=== PATIENT | male | born 1955 | race Caucasian/White ===

== ENCOUNTER 2017-04-11 15:08 | Emergency (ER) | payer MEDICARE ==
--- NOTE | 2017-04-11 15:13 | ED.PDOC ---
History of Present Illness - General Chief Complaint: Neuro Symptoms/Deficits Stated Complaint: L arm numbness & weakness Time Seen by Provider: 04/11/17 15:10 Source: patient, RN notes reviewed, Vital Signs reviewed, family - Exam Limitations: no limitations - History of Present Illness Initial Comments: Patient reports he was washing his car and his left arm went numb and weak. He could not open the car door. Symptoms are better now. reports he seems weaker on the left side and his speech is more slurred than normal. No chest pain or FUCHS. Timing/Duration: 1/2 hour Severity: mild Improving Factors: nothing Worsening Factors: nothing Associated Symptoms: slurred speech, weakness - L arm, other - numbness L arm Allergies/Adverse Reactions: Allergies NO KNOWN ALLERGY Allergy (Verified 04/11/17 16:17) Home Medications: Ambulatory Orders Clopidogrel Bisulfate [Plavix] 75 mg PO DAILY 04/11/17 Cyanocobalamin [Vitamin B12] 500 mcg PO DAILY 04/11/17 Levothyroxine Sodium 125 mcg PO DAILY 04/11/17 PARoxetine HCL [Paxil] 20 mg PO DAILY 04/11/17 Spironolactone 50 mg PO DAILY 04/11/17 Review of Systems - Review of Systems Constitutional: States: no symptoms reported EENTM: States: blurred vision Respiratory: States: no symptoms reported Cardiology: States: no symptoms reported. Denies: chest pain Gastrointestinal/Abdominal: States: no symptoms reported Musculoskeletal: States: no symptoms reported Skin: States: no symptoms reported Neurological: States: see HPI, numbness - L arm, weakness - L arm All other Systems: No Change from Baseline Family Medical History - Family History Father Family History: Unknown Living Status: Physical Exam - Physical Exam General Appearance: Alert, Comfortable, No apparent distress, Well Developed, Well Groomed, Well Hydrated, Well Nourished Eye Exam: bilateral normal ENT Exam: hearing grossly normal Neck: non-tender, supple, normal inspection Respiratory: lungs clear, normal breath sounds, no respiratory distress, no accessory muscle use Cardiovascular/Chest: regular rate, rhythm, no gallop, no murmur Gastrointestinal/Abdominal: normal bowel sounds, non tender, soft, no organomegaly Extremities Exam: non-tender, normal range of motion, no evidence of injury 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 Most likely TIA. Will have follow up with PCP this week. - Results/Orders Results/Orders: Laboratory Tests 04/11/17 04/11/17 15:45 15:45 WBC 4.9 RBC 4.56 L Hgb 13.2 L Hct 39.8 L MCV 87.4 MCH 28.9 MCHC 33.2 RDW 14.6 H Plt Count 155 MPV 10.0 Absolute Neuts (auto) 3.90 Absolute Lymphs (auto) 0.50 L Absolute Monos (auto) 0.40 Absolute Eos (auto) 0.10 Absolute Basos (auto) 0.00 Neutrophils % 79.0 H Lymphocytes % 10.0 L Monocytes % 9.1 H Eosinophils % 1.1 Basophils % 0.8 Sodium 132 L Potassium 3.9 Chloride 101 Carbon Dioxide 22 Anion Gap 12.9 BUN 24 H Creatinine 1.00 BUN/Creatinine Ratio 24.0 H Random Glucose 100 Serum Osmolality 268.6 L Calcium 8.9 Total Bilirubin 0.9 AST 34 ALT 23 Alkaline Phosphatase 52 Creatine Kinase 196 H CK-MB (CK-2) 3.2 CK-MB (CK-2) % Not Reportable Troponin I 0.02 Serum Total Protein 7.7 Albumin 4.0 Globulin 3.7 H Albumin/Globulin Ratio 1.1 - EKG/XRAY/CT CT Ordered: Yes - Head: old CVA R, no acute changes Stroke Information - Onset of Symptoms Symptoms of Stroke: Weakness of limb Stroke Onset of Symptoms Date: 04/11/17 Stroke Onset of Symptoms Time: 14:30 - Contraindications Antithrombotic Contraindication: Treatment not indicated t-PA Contraindication: Drug Tx Not Indicated Departure - Departure Clinical Impression: Transient ischaemic attack (TIA), and cerebral infarction without residual deficits Time of Disposition: 16:23 Disposition: Discharge to Home or Self Care Condition: Good Departure Forms: ED Discharge - Pt. Copy, Patient Portal Self Enrollment Instructions: DI for Transient Ischemic Attack Diet: resume usual diet Activity: increase activity as tolerated Referrals: Jay Mckenzie MD [Primary Care Provider] - 1-2 Days Home Medications: Ambulatory Orders Clopidogrel Bisulfate [Plavix] 75 mg PO DAILY 04/11/17 Cyanocobalamin [Vitamin B12] 500 mcg PO DAILY 04/11/17 Levothyroxine Sodium 125 mcg PO DAILY 04/11/17 PARoxetine HCL [Paxil] 20 mg PO DAILY 04/11/17 Spironolactone 50 mg PO DAILY 04/11/17
--- NOTE | 2017-04-11 16:01 | CT ---
EXAM DESCRIPTION: Head. CT head without contrast. CLINICAL HISTORY: L arm numbness/weakness COMPARISON: 03/16/2008 TECHNIQUE: Multiple axial images of the head without contrast. Multiplanar reformatted images. This exam was performed according to our departmental dose-optimization program, which includes automated exposure control, adjustment of the mA and/or kV according to patient size and/or use of iterative reconstruction technique. FINDINGS: There is no CT evidence of intracranial hemorrhage, mass effect, or large territory acute infarction. There is a chronic right middle cerebral artery territory infarct involving the frontoparietal lobes with encephalomalacia. There is moderate volume loss which is advanced for the patient's age. Mild patchy supratentorial white matter hypodensities. The brain parenchyma and ventricles are normal. There are no abnormal extra-axial fluid collections. Calcific plaque in the visualized arteries. There is no acute calvarial defect. The visualized paranasal sinuses and the mastoids are clear. IMPRESSION: 1. No CT evidence of an acute intracranial abnormality. If there is concern for an acute or subacute infarct, consider follow-up MRI. 2. Chronic right frontoparietal infarct with encephalomalacia. 3. Moderate volume loss. 4. Mild chronic microangiopathy. Electronically signed by: Azael Giraldo MD 04/11/2017 3:59 PM CDT
[2017-04-11 17:10] VITALS: BP 124/87; TEMP 97.2; O2SAT 97
== END 2017-04-11 16:55 | disposition home or self-care (01) ==
LOC: ER 15:08
DX: G45.9 Transient cerebral ischemic attack, unspecified (principal); Z79.02 Long term (current) use of antithrombotics/antiplatelets; Z79.899 Other long term (current) drug therapy; Z86.73 Personal history of transient ischemic attack (TIA), and cerebral infarction without residual deficits

== ENCOUNTER 2017-04-12 08:58 | Emergency (ER) | payer MEDICARE ==
--- NOTE | 2017-04-12 09:25 | CT ---
EXAM DESCRIPTION: Head CLINICAL HISTORY: 62 years, Male, decreased LOC COMPARISON: April 11, 2017 TECHNIQUE: Head CT was performed without IV contrast. This exam was performed according to our departmental dose-optimization program, which includes automated exposure control, adjustment of the mA and/or kV according to patient size and/or use of iterative reconstruction technique. FINDINGS: Today's exam is only slightly limited by motion artifact. With this in mind, no acute intracranial hemorrhage is seen. Is no midline shift or other mass effect. The ventricles and basilar cisterns are well maintained. No posterior fossa lesion. Mild chronic ischemic changes are noted in the periventricular white matter. There are small areas of subtle malacia in both cerebral hemispheres which are unchanged from prior exams and likely related to small remote cortical infarcts. No acute cortical infarct is seen. The basal ganglia are unremarkable. Visualized paranasal sinuses and orbits are unremarkable. Vascular calcifications are noted. IMPRESSION: Vascular calcifications and chronic ischemic changes including tiny remote cortical infarcts, but no acute intracranial abnormality. Electronically signed by: Subhash Nichole MD 04/12/2017 9:24 AM CDT
[2017-04-12] MEDS ORDERED: SODIUM CHLORIDE 0.9% 1000ML 1,000 ML IVS ONE (09:47)
--- NOTE | 2017-04-12 09:59 | RAD ---
History: Pain. Chest x-ray: AP portable film is obtained. Mediastinal surgical changes are demonstrated with a pacemaker that overlies left hemithorax. The cardiac silhouette is normal. Pulmonary vascularity is within normal limits. No pulmonary infiltrate or effusion. No significant pneumothorax is suggested on this portable radiograph. Anterior cervical fusion is partially seen. IMPRESSION: No active process in the chest. Electronically signed by: Karrie Solano MD 04/12/2017 9:58 AM CDT Workstation: [id number]
--- NOTE | 2017-04-12 10:20 | ED.PDOC ---
History of Present Illness - General Chief Complaint: Neuro Symptoms/Deficits Stated Complaint: fall, neuro defecits Time Seen by Provider: 04/12/17 09:12 Source: family Exam Limitations: no limitations - History of Present Illness Initial Comments: Adebayo Martinez 62 y/o male brought by family after he was found to be weak and numb on left side unable to get out of bed and need to be helped standing as well as walking at about 1-2 hours [employer] at ER. He was brought to ER yesterday after he called up daughter while he was driving had blurred vision and weakness on left arm was brought to [facility] ER and his symptoms went away and sent back home his head ct-was negative for recent cva but showed chronic right mca territory infarct involving frontoparietal lobes with encephalomalacia.Brought back this am for same symptoms.called up teleneurology for consult on this patient.He has history of throat and thyroid cancer and had surgery done on his neck and had stroke after wards family stated that he has some slurred speech since surgery.Neurology consult not recommending tpa since symptoms >12 hours. Severity: moderate Improving Factors: nothing Worsening Factors: nothing Associated Symptoms: numbness in legs/feet - left side Allergies/Adverse Reactions: Allergies NO KNOWN ALLERGY Allergy (Verified 04/11/17 16:17) Home Medications: Ambulatory Orders Clopidogrel Bisulfate [Plavix] 75 mg PO DAILY 04/11/17 Cyanocobalamin [Vitamin B12] 500 mcg PO DAILY 04/11/17 Levothyroxine Sodium 125 mcg PO DAILY 04/11/17 PARoxetine HCL [Paxil] 20 mg PO DAILY 04/11/17 Spironolactone 50 mg PO DAILY 04/11/17 Review of Systems - Review of Systems Constitutional: States: no symptoms reported EENTM: States: see HPI Respiratory: States: no symptoms reported Cardiology: States: no symptoms reported Genitourinary: States: no symptoms reported Musculoskeletal: States: no symptoms reported Skin: States: no symptoms reported Neurological: States: see HPI, numbness, paresthesia Endocrine: States: no symptoms reported Hematologic/Lymphatic: States: no symptoms reported Past Medical History (General) - Patient Medical History Hx Stroke: No Hx Cardiac Disorders: Yes - Cardiac stents, PVD Hx Congestive Heart Failure: No Hx Thyroid Disease: Yes Hx Diabetes: No Hx Cancer: Yes - thyroid, throat Surgical History: cancer surgery, pacemaker - aicd, other - carotid artery stents - Vaccination History Hx Influenza Vaccination: Yes - 2016 Hx Pneumococcal Vaccination: Yes - Social History Hx Tobacco Use: Yes Years Tobacco Use: 40 Cigarettes Packs Per Day: 40 Hx Alcohol Use: No Family Medical History - Family History Father Family History: Unknown Living Status: Hx Cardiac Disease: Yes - mom Physical Exam - Physical Exam General Appearance: Alert, Comfortable, No apparent distress Eye Exam: bilateral normal ENT Exam: normal ENT inspection, hearing grossly normal, pharynx normal Neck: non-tender, full range of motion, supple, normal inspection, trachea midline Respiratory: chest non-tender, lungs clear, normal breath sounds, no respiratory distress Cardiovascular/Chest: normal peripheral pulses, regular rate, rhythm, no murmur Peripheral Pulses: radial,right: 2+, radial,left: 2+ Gastrointestinal/Abdominal: non tender, soft, no organomegaly Back Exam: normal inspection, no CVA tenderness, no vertebral tenderness Extremities Exam: non-tender, normal range of motion Mental 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, 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 Exam: normal hearing, PERRL, other - speech slightly slurred Coordination/Gait: normal finger to nose Motor/Sensory: no motor deficit, no sensory deficit, weak motor strength LUE - mild 4/5 left right-5/5, other - negative Skin Exam: normal color, warm/dry Progress - Progress Progress: 04/12/17 11:01 Vital Signs - 8 hr 04/12/17 04/12/17 04/12/17 09:01 09:14 09:54 Temperature 96.8 F L Pulse Rate [ 87 77 75 apical] Respiratory 20 20 20 Rate Blood Pressure 157/94 149/88 125/88 [right brachial ] O2 Sat by Pulse 94 L 98 97 Oximetry Laboratory Tests 04/12/17 04/12/17 04/12/17 09:49 09:49 09:49 WBC 6.0 RBC 4.58 L Hgb 13.3 L Hct 40.2 L MCV 87.7 MCH 29.0 MCHC 33.2 RDW 14.8 H Plt Count 149 MPV 9.9 Absolute Neuts (auto) 4.80 Absolute Lymphs (auto) 0.50 L Absolute Monos (auto) 0.60 Absolute Eos (auto) 0.10 Absolute Basos (auto) 0.00 Neutrophils % 79.9 H Lymphocytes % 8.2 L Monocytes % 9.9 H Eosinophils % 1.4 Basophils % 0.6 PT 11.6 INR 1.030 PTT (SP) 32.6 Sodium 134 L Potassium 4.0 Chloride 105 Carbon Dioxide 22 Anion Gap 11.0 L BUN 22 H Creatinine 0.75 BUN/Creatinine Ratio 29.3 H Random Glucose 102 Serum Osmolality 271.8 L Calcium 9.0 Total Bilirubin 0.7 AST 30 ALT 22 Alkaline Phosphatase 52 Creatine Kinase 153 CK-MB (CK-2) 2.1 CK-MB (CK-2) % Not Reportable Troponin I 0.02 Serum Total Protein 7.7 Albumin 3.9 Globulin 3.8 H Albumin/Globulin Ratio 1.0 L - Results/Orders Results/Orders: CTA-NECK:Occlusion of bilateral internal carotid artery and left external carotid artery - EKG/XRAY/CT EKG: Sinus Comments: heart rate 83,left atrial enlargement XRAY: chest - no acute abnormality CT Ordered: Yes - CTA -brain/neck:-sse repports Stroke Information - Onset of Symptoms Symptoms of Stroke: Weakness of limb Stroke Onset of Symptoms Date: 04/11/17 - asymptomatic on arrival er - Contraindications Antithrombotic Contraindication: Treatment not indicated - past time limit Departure - Departure Clinical Impression: Carotid artery occlusion syndrome TIA (transient ischemic attack) Qualifiers: Transient cerebral ischemia type: carotid artery syndrome (hemispheric) Qualified Code(s): G45.1 - Carotid artery syndrome (hemispheric) Middle cerebral artery stenosis Qualifiers: Laterality: left Qualified Code(s): I66.02 - Occlusion and stenosis of left middle cerebral artery Nicotine dependence Qualifiers: Nicotine product type: cigarettes Substance use status: uncomplicated Qualified Code(s): F17.210 - Nicotine dependence, cigarettes, uncomplicated Time of Disposition: 12:15 Disposition: Transfer to Hospital Condition: Fair Departure Forms: Patient Portal Self Enrollment Referrals: Jay Mckenzie MD [Primary Care Provider] - 1-2 Weeks Home Medications: Ambulatory Orders Clopidogrel Bisulfate [Plavix] 75 mg PO DAILY 04/11/17 Cyanocobalamin [Vitamin B12] 500 mcg PO DAILY 04/11/17 Levothyroxine Sodium 125 mcg PO DAILY 04/11/17 PARoxetine HCL [Paxil] 20 mg PO DAILY 04/11/17 Spironolactone 50 mg PO DAILY 04/11/17 Transfer to Outside Facility - Transfer Information Accepting Facility: [facility] Reason for Transfer: required specialist not available - D/W Dr. Wilkins interventional radiologist for transfer he will call ER
--- NOTE | 2017-04-12 11:01 | CT ---
EXAM DESCRIPTION: CTA Neck CLINICAL HISTORY: left side weakness COMPARISON: None. TECHNIQUE: Postcontrast CTA images of the neck are obtained. Three-D reconstructed images of the arterial vasculature are performed. Coronal and sagittal reconstructed images are obtained. This exam was performed according to our departmental dose-optimization program, which includes automated exposure control, adjustment of the mA and/or kV according to patient size and/or use of iterative reconstruction technique . FINDINGS: Enlarged, opacified collateral venous vessels over the chest, back, and neck are seen. 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 There is 4 contrast opacification of the arterial vasculature secondary to timing of injection. Calcifications of the thoracic aortic arch are seen. The right brachiocephalic artery and subclavian artery are patent. There is moderate diffuse intimal thickening and soft plaque throughout the left common carotid artery. No high-grade stenosis of the right external carotid artery is seen. There are vascular stents in the carotid bulb to proximal right ICA which is completely occluded. There is poor opacification and visualization of the left common carotid artery. There is a vascular stent in the carotid bulb to proximal left ICA that appears occluded. No contrast opacification of the left internal carotid artery is seen. No obvious opacification of the external carotid artery branches is appreciated. There is opacification of the left subclavian artery although this is difficult to visualize because of the densely opacified collateral venous vessels. The left vertebral artery is nonopacified and likely occluded at its origin. The right vertebral artery is patent. Portions of the vessel are difficult to identify. There is some reconstitution of the left vertebral artery at the level of C1-2 and the skull base which could represent reflux from the right vertebral. Postsurgical changes from radical right neck dissection surgery are seen. ACDF changes from C5 through C7 are seen. Emphysematous changes to lung apices are seen. 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 Bilateral carotid artery stents are seen in place and are occluded. Occlusion of the bilateral internal carotid arteries and left external carotid artery branches is seen. There is occlusion of the left vertebral artery. Right vertebral artery does appear patent to the skull base. The right external carotid artery branches are opacified. Postsurgical changes from radical right neck dissection are seen. Electronically signed by: Freedom Harvey MD 04/12/2017 10:59 AM CDT
[2017-04-12] MEDS ORDERED: IPRATROPIUM/ALBUTEROL 3 ML VIAL NEB ONE (11:20)
--- NOTE | 2017-04-12 11:34 | CT ---
EXAM DESCRIPTION: CTA Head CLINICAL HISTORY: left side weakness COMPARISON: None. TECHNIQUE: Postcontrast CT images of the head are obtained from base to vertex. 3-D MIP reconstructed images of the arterial vasculature are obtained. This exam was performed according to our departmental dose-optimization program, which includes automated exposure control, adjustment of the mA and/or kV according to patient size and/or use of iterative reconstruction technique . FINDINGS: Midline structures are not displaced. Sulci are age appropriate. Symmetrical prominence of the lateral, third, fourth ventricles is seen. Decreased attenuation in the periventricular white matter and white matter of the centrum semiovale seen. No significant mass, mass effect, hydrocephalus, or acute intracranial hemorrhage is seen. No abnormal extra-axial fluid collections are seen. There is nonopacification of the intracranial bilateral internal carotid arteries. Moderate calcified plaque of the cavernous portion of the internal carotid arteries is seen. There is opacification of the right supraclinoid ICA. Patent anterior communicating artery is seen. There is minimal opacification and small left supraclinoid ICA to A1 and M1 segments. There is some faint opacification of asymmetrically small mid to distal branch vessels in the expected distribution of the left middle cerebral artery probably related to collateral circulation. There is contrast opacification of both intracranial vertebral arteries and basilar artery without flow-limiting stenosis. Posterior cerebral arteries are patent. There appear to be patent bilateral posterior communicating arteries. Major venous vasculature is unremarkable. There is reflux of contrast from the left internal jugular vein into the transverse sinuses. IMPRESSION: Occlusion of the extracranial internal carotid arteries bilaterally is seen as described on CT of the neck. There is reconstitution of the anterior circulation via the posterior communicating arteries and collateral vessels. There is poor opacification of the proximal middle cerebral artery branches suggesting stenosis or occlusion at this level. Electronically signed by: Freedom Harvey MD 04/12/2017 11:33 AM CDT
[2017-04-12] MEDS ORDERED: SODIUM CHLORIDE 0.9% 1000ML 1,000 ML IVS PRN (12:08)
[2017-04-12 12:53] VITALS: BP 153/82; O2SAT 98
== END 2017-04-12 12:53 | disposition short-term general hospital (02) ==
LOC: ER 08:58
DX: G45.1 Carotid artery syndrome (hemispheric) (principal); I66.02 Occlusion and stenosis of left middle cerebral artery; F17.210 Nicotine dependence, cigarettes, uncomplicated; E07.9 Disorder of thyroid, unspecified; Z98.61 Coronary angioplasty status; Z95.0 Presence of cardiac pacemaker; Z79.02 Long term (current) use of antithrombotics/antiplatelets; Z85.850 Personal history of malignant neoplasm of thyroid; Z85.89 Personal history of malignant neoplasm of other organs and systems
CPT/HCPCS: 36415; 70450; 70496; 70498; 71010; 80053; 80307; 81001; 82550; 82553; 84484; 85025; 85610; 85730; 93005; 94640; J7030; J7620

== ENCOUNTER → 2017-05-21 | Outpatient (CLI) | payer MEDICARE | END | disposition home or self-care (01) | LOC: GT 06:03 | PROVIDERS: ATTEND Internal Medicine | DX: E03.9 Hypothyroidism, unspecified (principal); E78.5 Hyperlipidemia, unspecified | CPT/HCPCS: 36415; 80061; 84443; P9603 ==

== ENCOUNTER → 2017-05-25 | Outpatient (CLI) | payer MEDICARE | END | disposition home or self-care (01) | LOC: GT 07:10 | PROVIDERS: ATTEND Family Medicine | DX: J69.8 Pneumonitis due to inhalation of other solids and liquids (principal); N39.0 Urinary tract infection, site not specified; R41.841 Cognitive communication deficit ==

== ENCOUNTER 2017-06-03 13:23 | Emergency (ER) | payer MEDICARE ==
[2017-06-03] MEDS ORDERED: ALBUTEROL SULFATE 2.5 MG/3 ML VIAL NEB ONE (13:34)
--- NOTE | 2017-06-03 13:38 | ED.PDOC ---
History of Present Illness - General Chief Complaint: Respiratory Problem Stated Complaint: shortness of breath Time Seen by Provider: 06/03/17 13:34 Source: patient, RN notes reviewed, Vital Signs reviewed, EMS notes reviewed Exam Limitations: no limitations - History of Present Illness Timing/Duration: this morning Severity: moderate Possible Cause: no prior episodes Improving Factors: nothing Worsening Factors: nothing Associated Symptoms: denies symptoms, fever/chills, shortness of breath, wheezing Respiratory Risk Factors: no cause identified - UT reports that patient possible aspirated on food through G-tube Allergies/Adverse Reactions: Allergies NO KNOWN ALLERGY Allergy (Verified 04/11/17 16:17) Home Medications: Ambulatory Orders Clopidogrel Bisulfate [Plavix] 75 mg PO DAILY 04/11/17 Cyanocobalamin [Vitamin B12] 500 mcg PO DAILY 04/11/17 Levothyroxine Sodium 125 mcg PO DAILY 04/11/17 PARoxetine HCL [Paxil] 20 mg PO DAILY 04/11/17 Spironolactone 50 mg PO DAILY 04/11/17 Clindamycin HCl 300 mg PO TID 7 Days #21 cap 06/03/17 Review of Systems - Review of Systems Constitutional: States: chills, fever EENTM: Denies: ear pain, nose pain, throat pain, mouth pain Respiratory: States: cough, short of breath, wheezing Cardiology: Denies: chest pain, edema, palpitations, syncope Gastrointestinal/Abdominal: Denies: abdominal pain, constipation, diarrhea, nausea, vomiting Genitourinary: Denies: dysuria, frequency, hematuria Musculoskeletal: Denies: joint pain, joint swelling, muscle pain, muscle stiffness Skin: Denies: change in hair/nails, dryness Neurological: Denies: headache, numbness Endocrine: Denies: excessive sweating, flushing Past Medical History (General) - Patient Medical History Hx Stroke: No Hx Cardiac Disorders: Yes - Cardiac stents, PVD Hx Congestive Heart Failure: No Hx Thyroid Disease: Yes Hx Diabetes: No Hx Cancer: Yes - thyroid, throat - Vaccination History Hx Influenza Vaccination: Yes - 2016 Hx Pneumococcal Vaccination: Yes - Social History Hx Tobacco Use: Yes Hx Alcohol Use: No - Activities of Daily Living Half-Way/Assisted Living (if applicable):: [facility] Family Medical History - Family History Father Family History: Unknown Living Status: Hx Cardiac Disease: Yes - mom Physical Exam - Physical Exam General Appearance: Alert, Well Groomed, Well Nourished ENT Exam: normal ENT inspection, nasal congestion Neck: non-tender, full range of motion, supple Respiratory: chest non-tender, rales, wheezing Cardiovascular/Chest: normal peripheral pulses, regular rate, rhythm, no edema, no gallop, no JVD, no murmur Gastrointestinal/Abdominal: normal bowel sounds, non tender, soft, no organomegaly, other - gi tube Extremity: normal range of motion, non-tender, normal inspection, no pedal edema , no calf tenderness 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, no motor/sensory deficits, alert, normal mood/affect Skin Exam: normal color, warm/dry Lymphatic: no adenopathy Progress - Progress Progress: 06/03/17 15:04 06/03/17 13:34 SPUTUM CULTURE Stat URINALYSIS Stat 06/03/17 13:35 Oxygen Delivery Assessment: QSHIFT Oxygen Stat Pulse Ox Stat Pulse Oximetry Assessment DAILY 06/03/17 13:45 EKG STAT 06/03/17 13:51 BLOOD CULTURE Stat Laboratory Results WBC 4.5 K/mm3 (4.8-10.8) L 06/03/17 13:51 RBC 4.25 M/mm3 (4.70-6.10) L 06/03/17 13:51 Hgb 11.5 gm/dL (14.0-18.0) L 06/03/17 13:51 Hct 35.5 % (42.0-52.0) L 06/03/17 13:51 MCV 83.6 fl (80.0-94.0) 06/03/17 13:51 MCH 27.0 pg (27.0-31.0) 06/03/17 13:51 MCHC 32.4 g/dL (33.0-37.0) L 06/03/17 13:51 RDW 16.1 % (11.5-14.5) H 06/03/17 13:51 Plt Count 177 K/mm3 (130-400) 06/03/17 13:51 MPV 11.2 fl (7.40-10.4) H 06/03/17 13:51 Absolute Neuts (auto) 3.60 K/uL (1.8-6.8) 06/03/17 13:51 Absolute Lymphs (auto) 0.50 K/uL (1.0-3.4) L 06/03/17 13:51 Absolute Monos (auto) 0.40 K/uL (0.2-0.8) 06/03/17 13:51 Absolute Eos (auto) 0.00 K/uL (0.0-0.4) 06/03/17 13:51 Absolute Basos (auto) 0.00 K/uL (0.0-0.1) 06/03/17 13:51 Neutrophils % 79.9 % (42.0-78.0) H 06/03/17 13:51 Lymphocytes % 11.2 % (20.0-50.0) L 06/03/17 13:51 Monocytes % 8.3 % (2.0-9.0) 06/03/17 13:51 Eosinophils % 0.1 % (1.0-5.0) L 06/03/17 13:51 Basophils % 0.5 % (0.0-2.0) 06/03/17 13:51 PT 13.8 SECONDS (9.4-12.5) H 06/03/17 13:51 INR 1.220 06/03/17 13:51 PTT (SP) 36.7 SECONDS (25.1-36.5) H 06/03/17 13:51 Sodium 138 mmol/L (135-145) 06/03/17 13:51 Potassium 4.2 mmol/L (3.6-5.0) 06/03/17 13:51 Chloride 103 mmol/L (101-111) 06/03/17 13:51 Carbon Dioxide 27 mmol/L (21-31) 06/03/17 13:51 Anion Gap 12.2 (12-18) 06/03/17 13:51 BUN 23 mg/dL (7-18) H 06/03/17 13:51 Creatinine 0.66 mg/dL (0.6-1.3) 06/03/17 13:51 BUN/Creatinine Ratio 34.8 (10-20) H 06/03/17 13:51 Random Glucose 138 mg/dL (70-105) H 06/03/17 13:51 Serum Osmolality 281.6 mOsm/L (275-295) 06/03/17 13:51 Calcium 9.2 mg/dL (8.4-10.2) 06/03/17 13:51 Total Bilirubin 0.8 mg/dL (0.2-1.0) 06/03/17 13:51 AST 34 IU/L (10-42) 06/03/17 13:51 ALT 41 IU/L (10-60) 06/03/17 13:51 Alkaline Phosphatase 79 IU/L (42-121) 06/03/17 13:51 B-Natriuretic Peptide 397.0 pg/ml (0-100) H* 06/03/17 13:51 Serum Total Protein 8.1 gm/dL (6.4-8.2) 06/03/17 13:51 Albumin 3.4 g/dl (3.2-5.5) 06/03/17 13:51 Globulin 4.7 gm/dL (2.3-3.5) H 06/03/17 13:51 Albumin/Globulin Ratio 0.7 (1.1-1.9) L 06/03/17 13:51 06/03/17 15:12 pt o2 93 on home O2, pt has not chest pain. EKG no angina. Will give does of IV lasix to diereses, pt to see pcp for further workup. Given likely aspiration and rales on exam will place patient on clindamycin pt currently non toxic Departure - Departure Clinical Impression: CHF exacerbation, Aspiration into airway Time of Disposition: 15:10 Disposition: Discharge to Home or Self Care Condition: Fair Departure Forms: ED Discharge - Pt. Copy, Patient Portal Self Enrollment Instructions: DI for Aspiration Pneumonia, Heart Failure Diet: other - tube feedings advance as tolerated Referrals: Jay Mckenzie MD [Primary Care Provider] - 1-2 Weeks Prescriptions: Clindamycin HCl 300 mg PO TID 7 Days #21 cap Home Medications: Ambulatory Orders Clopidogrel Bisulfate [Plavix] 75 mg PO DAILY 04/11/17 Cyanocobalamin [Vitamin B12] 500 mcg PO DAILY 04/11/17 Levothyroxine Sodium 125 mcg PO DAILY 04/11/17 PARoxetine HCL [Paxil] 20 mg PO DAILY 04/11/17 Spironolactone 50 mg PO DAILY 04/11/17 Clindamycin HCl 300 mg PO TID 7 Days #21 cap 06/03/17
[2017-06-03 13:39] VITALS: TEMP 97.7; O2SAT 94
--- NOTE | 2017-06-03 13:49 | RAD ---
Procedure: XR CHEST 1 VIEW Exam Date: 06/03/2017 1:34 PM CLINICAL SAFETY SPECIALIST Ordering Provider: Mauricio Tomlin Clinical Indication: shortness of breath Comparison: April 12, 2017 Findings: Left-sided dual-lead defibrillator is present. Heart size is normal. Postoperative changes of CABG surgery are present. Mild bilateral perihilar interstitial septal prominence. No significant pleural effusion or pneumothorax is present. Postoperative changes are seen in the cervical spine. Impression: Mild central vascular congestion. Previous CABG surgery. Electronically signed by: Lindsey Joe MD 06/03/2017 1:48 PM CLINICAL SAFETY SPECIALIST
[2017-06-03] MEDS ORDERED: FUROSEMIDE INJ 40 MG/4 ML VIAL IV ONE (15:06)
[2017-06-03] MEDS ORDERED: FUROSEMIDE 40 MG TAB GT ONE (15:31)
[2017-06-03 18:33] VITALS: BP 127/73
== END 2017-06-03 15:45 | disposition home or self-care (01) ==
LOC: ER 13:23
DX: J44.1 Chronic obstructive pulmonary disease with (acute) exacerbation (principal); K94.29 Other complications of gastrostomy; R00.0 Tachycardia, unspecified; Z85.850 Personal history of malignant neoplasm of thyroid; Z85.89 Personal history of malignant neoplasm of other organs and systems; Z98.61 Coronary angioplasty status; Z87.891 Personal history of nicotine dependence
CPT/HCPCS: 36415; 71010; 80053; 83880; 85025; 85610; 85730; 87040; 93005; 94640; 94760; J7611

== ENCOUNTER 2017-06-03 22:58 | Inpatient (IN) | payer MEDICARE ==
[2017-06-03] MEDS ORDERED: ASPIRIN TABLET 325 MG TAB PO ONE (23:01)
[2017-06-03] MEDS ORDERED: NITROGLYCERIN 0.4 MG 25 EA TAB SL ONE (23:01)
[2017-06-03] MEDS ORDERED: ONDANSETRON INJ 4 MG/2 ML VIAL IV ONE (23:01)
[2017-06-03] MEDS ORDERED: FUROSEMIDE INJ 40 MG/4 ML VIAL IV ONE (23:03)
--- NOTE | 2017-06-03 23:09 | ED.PDOC ---
History of Present Illness - General Chief Complaint: Respiratory Problem Stated Complaint: shortness of breath Time Seen by Provider: 06/03/17 23:01 Source: RN notes reviewed, Vital Signs reviewed, EMS notes reviewed, family Exam Limitations: physical impairment - History of Present Illness Timing/Duration: 24 hours Severity: moderate Activities at Onset: none Possible Cause: frequent episodes Improving Factors: nothing Worsening Factors: nothing Associated Symptoms: cough, wheezing Respiratory Risk Factors: no cause identified Allergies/Adverse Reactions: Allergies NO KNOWN ALLERGY Allergy (Verified 06/03/17 23:35) Home Medications: Ambulatory Orders Clopidogrel Bisulfate [Plavix] 75 mg PO DAILY 04/11/17 Cyanocobalamin [Vitamin B12] 500 mcg PO DAILY 04/11/17 Levothyroxine Sodium 125 mcg PO DAILY 04/11/17 PARoxetine HCL [Paxil] 20 mg PO DAILY 04/11/17 Spironolactone 50 mg PO DAILY 04/11/17 Clindamycin HCl 300 mg PO TID 7 Days #21 cap 06/03/17 Review of Systems - Review of Systems Constitutional: States: chills, fever EENTM: Denies: ear pain, nose pain, throat swelling, mouth swelling Respiratory: States: cough, short of breath, wheezing Cardiology: Denies: chest pain, edema, palpitations Gastrointestinal/Abdominal: Denies: abdominal pain, diarrhea, vomiting Genitourinary: Denies: dysuria, frequency, hematuria Musculoskeletal: States: no symptoms reported. Denies: joint pain Skin: Denies: change in color Neurological: Denies: anxiety Endocrine: States: no symptoms reported Hematologic/Lymphatic: States: no symptoms reported Past Medical History (General) - Patient Medical History Hx Stroke: No Hx Cardiac Disorders: Yes - Cardiac stents, PVD Hx Congestive Heart Failure: No Hx Thyroid Disease: Yes Hx Diabetes: No Hx Cancer: Yes - thyroid, throat - Vaccination History Hx Influenza Vaccination: Yes - 2015 Hx Pneumococcal Vaccination: Yes - Social History Hx Tobacco Use: Yes Hx Alcohol Use: No Family Medical History - Family History Father Family History: Unknown Living Status: Hx Cardiac Disease: Yes - mom Physical Exam - Physical Exam General Appearance: Alert, Anxious, Frail Eyes, Ears, Nose, Throat Exam: PERRL/EOMI, normal ENT inspection, pharynx normal Neck: non-tender, full range of motion, supple, normal inspection Respiratory: chest non-tender, rales, wheezing Cardiovascular/Chest: normal peripheral pulses, regular rate, rhythm, no edema, no JVD Peripheral Pulses: radial,right: 2+ Gastrointestinal/Abdominal: non tender, soft Extremity: normal range of motion, non-tender Neurologic: alert Skin Exam: normal color, warm/dry Progress - Progress Progress: 06/04/17 00:39 06/03/17 23:01 Sodium Chloride 0.9% (Flush) [Saline Flush Syringe] 10 ml IV PRN PRN 06/03/17 23:02 IV Care:Saline Lock per Protoc QSHIFT Telemetry .ONCE EKG Stat Pulse Ox Stat Pulse Oximetry Assessment DAILY 06/03/17 23:25 BLOOD CULTURE Stat 06/04/17 00:37 LACTIC ACID Stat Piperacillin/Tazobactam [Zosyn] 3.375 gm Sodium Chloride 0.9% 100Ml [NS (NACL 0.9%) 100ml] 100 ml IVPB ONCE 06/04/17 00:38 ED Intent to Admit Routine Laboratory Results WBC 4.3 K/mm3 (4.8-10.8) L 06/03/17 23:20 RBC 3.91 M/mm3 (4.70-6.10) L 06/03/17 23:20 Hgb 10.8 gm/dL (14.0-18.0) L 06/03/17 23:20 Hct 32.2 % (42.0-52.0) L 06/03/17 23:20 MCV 82.3 fl (80.0-94.0) 06/03/17 23:20 MCH 27.6 pg (27.0-31.0) 06/03/17 23:20 MCHC 33.5 g/dL (33.0-37.0) 06/03/17 23:20 RDW 16.2 % (11.5-14.5) H 06/03/17 23:20 Plt Count 163 K/mm3 (130-400) 06/03/17 23:20 MPV 11.0 fl (7.40-10.4) H 06/03/17 23:20 Absolute Neuts (auto) 3.60 K/uL (1.8-6.8) 06/03/17 23:20 Absolute Lymphs (auto) 0.40 K/uL (1.0-3.4) L 06/03/17 23:20 Absolute Monos (auto) 0.30 K/uL (0.2-0.8) 06/03/17 23:20 Absolute Eos (auto) 0.00 K/uL (0.0-0.4) 06/03/17 23:20 Absolute Basos (auto) 0.00 K/uL (0.0-0.1) 06/03/17 23:20 Neutrophils % 84.1 % (42.0-78.0) H 06/03/17 23:20 Lymphocytes % 8.8 % (20.0-50.0) L 06/03/17 23:20 Monocytes % 6.4 % (2.0-9.0) 06/03/17 23:20 Eosinophils % 0.1 % (1.0-5.0) L 06/03/17 23:20 Basophils % 0.6 % (0.0-2.0) 06/03/17 23:20 PT 15.3 SECONDS (9.4-12.5) H 06/03/17 23:20 INR 1.360 06/03/17 23:20 PTT (SP) 35.0 SECONDS (25.1-36.5) 06/03/17 23:20 pCO2 33 mmHg (35-48) L 06/04/17 00:10 pO2 57 mmHg (83-108) L 06/04/17 00:10 HCO3 24.5 mmol/L 06/04/17 00:10 ABG pH 7.480 (7.35-7.45) H 06/04/17 00:10 ABG O2 Saturation 93.8 % (95.0-99.0) L 06/04/17 00:10 ABG Base Excess 1.8 mmol/L 06/04/17 00:10 ABG Deoxyhemoglobin 6.1 % (0.0-5.0) H 06/04/17 00:10 Oxyhemoglobin % 91.7 % (94.0-98.0) L 06/04/17 00:10 Carboxyhemoglobin % 1.1 % (0.5-1.5) 06/04/17 00:10 Methemoglobin % Sat 1.0 % (0.0-1.5) 06/04/17 00:10 Calc Total Hemoglobin 10.5 g/dL (13.5-17.5) L 06/04/17 00:10 Sodium 135 mmol/L (135-145) 06/03/17 23:20 Potassium 3.6 mmol/L (3.6-5.0) 06/03/17 23:20 Chloride 102 mmol/L (101-111) 06/03/17 23:20 Carbon Dioxide 26 mmol/L (21-31) 06/03/17 23:20 Anion Gap 10.6 (12-18) L 06/03/17 23:20 BUN 21 mg/dL (7-18) H 06/03/17 23:20 Creatinine 0.66 mg/dL (0.6-1.3) 06/03/17 23:20 BUN/Creatinine Ratio 31.8 (10-20) H 06/03/17 23:20 Random Glucose 188 mg/dL (70-105) H D 06/03/17 23:20 Serum Osmolality 278.0 mOsm/L (275-295) 06/03/17 23:20 Calcium 8.7 mg/dL (8.4-10.2) 06/03/17 23:20 Magnesium 1.6 mg/dL (1.8-2.5) L 06/03/17 23:20 Creatine Kinase 69 IU/L (38-174) 06/03/17 23:20 CK-MB (CK-2) 0.7 ng/mL (0.0-4.4) 06/03/17 23:20 CK-MB (CK-2) % Not Reportable 06/03/17 23:20 Troponin I 0.02 ng/mL (0.01-0.05) 06/03/17 23:20 B-Natriuretic Peptide 318.0 pg/ml (0-100) H* 06/03/17 23:20 Abnormal Lab Results 06/03/17 06/04/17 23:20 00:10 WBC 4.3 L RBC 3.91 L Hgb 10.8 L Hct 32.2 L RDW 16.2 H MPV 11.0 H Absolute Lymphs (auto) 0.40 L Neutrophils % 84.1 H Lymphocytes % 8.8 L Eosinophils % 0.1 L PT 15.3 H pCO2 33 L pO2 57 L ABG pH 7.480 H ABG O2 Saturation 93.8 L ABG Deoxyhemoglobin 6.1 H Oxyhemoglobin % 91.7 L Calc Total Hemoglobin 10.5 L Anion Gap 10.6 L BUN 21 H BUN/Creatinine Ratio 31.8 H Random Glucose 188 H D Magnesium 1.6 L B-Natriuretic Peptide 318.0 H* 06/04/17 00:42 discussed case with Ceci Hoyos and agrees to admit - EKG/XRAY/CT EKG: Sinus, Tachy Comments: rate 109, pr 138, qrs 82, qtc 441 Departure - Departure Clinical Impression: Aspiration pneumonia, Hypoxia, Tachycardia Time of Disposition: 00:40 Disposition: Admit Patient Condition: Fair Departure Forms: ED Discharge - Pt. Copy, Patient Portal Self Enrollment Diet: other - tube feeds Activity: increase activity as tolerated Referrals: Jay Mckenzie MD [Primary Care Provider] - 1-2 Weeks Home Medications: Ambulatory Orders Clopidogrel Bisulfate [Plavix] 75 mg PO DAILY 04/11/17 Cyanocobalamin [Vitamin B12] 500 mcg PO DAILY 04/11/17 Levothyroxine Sodium 125 mcg PO DAILY 04/11/17 PARoxetine HCL [Paxil] 20 mg PO DAILY 04/11/17 Spironolactone 50 mg PO DAILY 04/11/17 Clindamycin HCl 300 mg PO TID 7 Days #21 cap 06/03/17 Critical Care Note - Critical Care Note Total Time (mins): 40 Decision To Admit - Decistion To Admit Decision to Admit Reason: Admit from ER Decision to Admit Date: 06/04/17 Decision to Admit Time: 00:40
[2017-06-03] MEDS: SODIUM CHLORIDE 0.9% (FLUSH) 10 ML SYG IV PRN (23:32)
[2017-06-04] MEDS ORDERED: ALBUTEROL SULFATE 2.5 MG/3 ML VIAL NEB ONE (00:06)
--- NOTE | 2017-06-04 00:29 | RAD ---
EXAM: Single view chest. INDICATION: Shortness of breath. COMPARISON: Chest x-ray: 06/03/2017. FINDINGS: Cardiac silhouette: Stable with a left chest wall pacemaker/AICD in place Shyanne: Pulmonary vascular congestion Lobar consolidation: None. Pleural effusion: None. Pneumothorax: None. Other: None. Bones: Changes of anterior cervical fusion Other: None. IMPRESSION: Mild pulmonary vascular congestion Electronically signed by: Logan Curiel MD 06/04/2017 12:27 AM WIND ENER[employer] SYSTEMS INSTALLER Workstation: [id number]
[2017-06-04] MEDS ORDERED: PIPERACILLIN/TAZOBACTAM 3.375 GM in SODIUM CHLORIDE 0.9% 100ML 100 ML IVPB ONE (00:37)
[2017-06-04] MEDS ORDERED: SODIUM CHLORIDE 0.9% 100ML 100 ML IVPB ONE ×5 (00:59→22:38)
[2017-06-04] MEDS ORDERED: PIPERACILLIN/TAZOBACTAM 3.375 GM VIAL IVPB ONE ×6 (00:59→22:38)
--- NOTE | 2017-06-04 01:01 | HP ---
HISTORY OF PRESENT ILLNESS: This 62-year-old, white male who is a resident of [facility] is admitted to the hospital via the Emergency Room because of worsening shortness of breath especially worsening over the last day. He was seen earlier yesterday morning in the Emergency Room and was found to have a low degree of congestive heart failure, pulmonary congestion on chest x-ray and some aspiration symptoms and was started on clindamycin which was never started at the [facility] because the medicine had not been acquired. It was 10 hours later that he came back to the Emergency Room because of episodes of worsening shortness of breath. He becomes quite anxious and ends up coughing and even some of his coloration changes. Aspiration is a significant problem since he has had two strokes which occurred beginning the middle of March. This required two weeks at [facility]. It was there that they found he had almost complete obstruction of one of his carotid arteries which was unapproachable. He had had worsening aspiration with dysphagia and difficulty swallowing and was unable to fully talk and tended to choke easily. He was given a gastric feeding tube and was sent to [facility] at [facility]. Since that time, he has gained 4 pounds and has been able to get up and around in a wheelchair with weakness on the left side of his body showing some slight improvement, especially in the leg. His talking and his ability to swallow, though, have persisted in being significantly disabled. Last evening, he was admitted to the hospital because of the development of a left middle and left lower lobe pneumonia on chest x- ray. This will require parenteral antibiotic treatment, special attention to his nutritional needs and efforts to avoid further aspiration. PAST MEDICAL HISTORY: 1. Aspiration pneumonia. 2. Difficulty swallowing with choking because of cerebrovascular accident on two occurrences in the middle of March of 2017. 3. Evidence of pulmonary edema with congestive heart failure. 4. Low thyroid after subtotal thyroidectomy for thyroid cancer in the past, now being "cancer free." 5. History of chronic obstructive pulmonary disease in a heavy smoker of 2 to 3 or more packs of cigarettes per day. 6. History of hypertension. 7. History of almost complete occlusion of carotid artery with associated stenosis, nonoperable. PAST SURGICAL HISTORY: 1. Hemorrhoidectomy. 2. Stents on at least 4 or 5 different coronary vessels. No other surgeries. CURRENT MEDICATIONS: Please refer to nursing notes of verified home medications. ALLERGIES: NONE KNOWN. FAMILY HISTORY: Positive for coronary artery disease and strokes. 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 He has smoked 2 , 3 or more packs of cigarettes per day for many years and has stopped only because no one will supply it to him in the [facility] as of the last month. REVIEW OF SYSTEMS: GENERAL: Some weight reduction noted recently and then subsequently gaining some weight after PEG tube feedings have been instituted at the [facility]. No fever or chills. HEENT: The patient keeps his eyes mainly closed and is able to shake his head to questioning, but does not speak though he has spoken recently with the family. He is stating he is not in any pain at this time. Episodes of intermittent marked dyspnea are noted which may represent also some bronchial plugs requiring clearing so that he will be able to then feel improved after a while of coughing. CARDIOVASCULAR: No significant palpitations or chest pains. GASTROINTESTINAL: He chokes and requires PEG tube feeding. No gastrointestinal bleeding noted. NEUROLOGIC: Some persistent left sided weakness, especially the arm more so than the leg and difficulty talking and swallowing from his stroke of approximately 2 months ago.s. PHYSICAL EXAMINATION: VITAL SIGNS: Afebrile. Pulse 98. Blood pressure 128/74. Respirations 20, up to 24. Pulse oximetry has ranged between 93% and 98%, each time being on a mask with associated flush. GENERAL: Coloration is somewhat pale and skin and general appearance showing a gentleman quite a bit older than his stated age. LUNGS: Diminished breath sounds bilaterally. CARDIOVASCULAR: Heart tones are somewhat rapid, though regular. ABDOMEN: Soft with diminished bowel tones and PEG tube in place. EXTREMITIES: Left leg is weaker compared to the right, but stronger than it has been. NEUROLOGIC: The patient has been left with a residual left hemiparesis from cerebrovascular accidents experienced two months ago and observed and treated at [facility]. LABORATORY: X-rays shows left lower lobe pneumonia with moderate pulmonary vascular congestion also noted earlier. White count 6,200 with 81% neutrophils. Hemoglobin down to 10.4. INR 1.36. Blood gas shows pH 7.48, saturation 94%, FIO2 not listed, CO2 low at 57, PCO2 low at 33. Chemistries show potassium down to 3.4, BUN 20, creatinine 0.79, glucose 162, calcium 8.5. Liver enzymes normal. Beta natriuretic peptide 318. Troponin 0.02. Albumin 3.1. Urinalysis is generally clean. Blood cultures and urine culture are pending. ASSESSMENT: 1. Acute left lower lobe pneumonia, health facility acquired, requiring specialized observation and treatment especially because of associated aspiration etiology potential. Started on Zosyn pending culture results. 2. Chronic history of aspiration secondary to significant dysphagia after cerebrovascular accidents two months ago. 3. Gastric tube feeding through a percutaneous endoscopic gastrostomy tube because of the patient's significant tendency to aspirate. 4. Congestive heart failure with pulmonary congestion on chest x-ray of undetermined etiology and followup suggested. 5. Hypothyroidism on supplementation. 6. History of thyroid cancer requiring surgical intervention thyroid and radiation treatments, now "cancer free" according to the mother. 7. History of cerebrovascular accident on two occasions two months ago, treated [facility]. 8. Significant carotid stenosis, nonoperable, no doubt contributing to some cerebral ischemia. 9. Chronic obstructive pulmonary disease. 10. Chronic tobacco abuse with three or more packs of cigarettes having been recently consumed 11. History of hypertension. PLAN: The patient is admitted to the hospital and is placed on Zosyn to help cover anaerobes as well as other bacterial components related to aspiration pneumonia in a health care facility. He was given some IV fluids to assist with prevention of any renal function deterioration. Avoid overhydration. Check hemoglobin A1c and thyroid function. Reevaluate and closely manage. Followup with Dr. Mckenzie upon completion. #[id number] [facility]
[2017-06-04] MEDS ORDERED: ALBUTEROL SULFATE 2.5 MG/3 ML VIAL NEB PRN (01:46)
[2017-06-04] MEDS ORDERED: SODIUM CHLORIDE 0.9% (FLUSH) 10 ML SYG IV PRN (01:46)
[2017-06-04] MEDS ORDERED: ENOXAPARIN SODIUM 40 MG/0.4 ML SYG SUBCU SCH (02:00)
[2017-06-04] MEDS ORDERED: DEXTROSE 50% 25 GM/50 ML SYG IV PRN (02:02)
[2017-06-04] MEDS ORDERED: GLUCAGON INJ 1 MG VIAL SUBCU PRN (02:02)
[2017-06-04] MEDS: IPRATROPIUM/ALBUTEROL 3 ML VIAL INH SCH ×6 (02:30→20:20)
[2017-06-04] MEDS: IV SET AND CAP CHANGE INJ INJ SCH (03:01)
[2017-06-04] MEDS: INSULIN LISPRO 100 UNITS/ML PEN SUBCU SCH ×4 (03:02→17:47)
[2017-06-04] MEDS ORDERED: SODIUM CHL 0.9% 100ML MINI-BAG 100 ML IVPB ONE (06:07)
[2017-06-04] MEDS: PANTOPRAZOLE SODIUM IV 40 MG VIAL IV SCH (06:33)
[2017-06-04] MEDS: PIPERACILLIN/TAZOBACTAM 3.375 GM in SODIUM CHLORIDE 0.9% 100ML 100 ML IVPB SCH ×3 (06:33→18:10)
[2017-06-04] MEDS: SODIUM CHLORIDE 0.9% (FLUSH) 10 ML SYG IV PRN (06:34)
--- NOTE | 2017-06-04 07:07 | RAD ---
EXAM: Single view chest. INDICATION: Pneumonia. COMPARISON: Chest x-ray: 06/03/2017. FINDINGS: There is a left lower lobe airspace opacity. The right lung is clear. The heart size is stable with a left chest wall pacemaker/AICD in place. There is no pneumothorax or pleural effusion. There are changes of anterior cervical fusion. IMPRESSION: Left lower lobe pneumonia Electronically signed by: Logan Curiel MD 06/04/2017 7:05 AM BUILDING SUPERINTENDENT Workstation: [id number]
[2017-06-04] MEDS ORDERED: SODIUM CHLORIDE 0.9% (FLUSH) 10 ML SYG IV SCH (09:00)
[2017-06-04] MEDS: KCL 20 MEQ/NS 1,000 ML IVS PRN ×2 (11:35→22:20)
[2017-06-04] MEDS ORDERED: POTASSIUM CHLORIDE 10 MEQ TAB PO SCH (12:30)
[2017-06-04] MEDS: ASPIRIN TABLET 325 MG TAB NG SCH (14:42)
[2017-06-04] MEDS: POTASSIUM CHLORIDE ELIXIR 20 MEQ/15 ML UD NG SCH (14:42)
[2017-06-04] MEDS: CLOPIDOGREL 75 MG TAB NG SCH (14:42)
[2017-06-04] MEDS: NON-FORMULARY MEDICATION 1 EA MIS NG SCH ×4 (15:10→21:39)
[2017-06-04] MEDS ORDERED: POTASSIUM CHLORIDE ELIXIR 20 MEQ/15 ML UD GT SCH (17:00)
[2017-06-04] MEDS: MELATONIN 3 MG TAB NG SCH (21:16)
[2017-06-04] MEDS ORDERED: LEVOTHYROXINE SODIUM 0.025 MG TAB ONE (22:37)
[2017-06-04] MEDS ORDERED: LEVOTHYROXINE SODIUM 0.1 MG TAB ONE (22:37)
[2017-06-05] MEDS: PIPERACILLIN/TAZOBACTAM 3.375 GM in SODIUM CHLORIDE 0.9% 100ML 100 ML IVPB SCH ×4 (00:27→17:58)
[2017-06-05] MEDS: INSULIN LISPRO 100 UNITS/ML PEN SUBCU SCH ×4 (00:28→17:57)
[2017-06-05] MEDS: IPRATROPIUM/ALBUTEROL 3 ML VIAL INH SCH ×6 (00:46→20:26)
[2017-06-05] MEDS: LEVOTHYROXINE SODIUM 0.1 MG TAB NG SCH (06:27)
[2017-06-05] MEDS: PANTOPRAZOLE SODIUM IV 40 MG VIAL IV SCH (06:27)
[2017-06-05] MEDS: LEVOTHYROXINE SODIUM 0.025 MG TAB NG SCH (06:27)
[2017-06-05] MEDS: NON-FORMULARY MEDICATION 1 EA MIS NG SCH ×5 (06:28→21:37)
[2017-06-05] MEDS ORDERED: NON-FORMULARY MEDICATION 1 EA MIS (Levothyroxine Sodium [Levothyroxine Sodium] 125 MCG) PEG SCH (07:00)
[2017-06-05] MEDS ORDERED: ENOXAPARIN SODIUM 40 MG/0.4 ML SYG SUBCU ONE (07:32)
[2017-06-05] MEDS ORDERED: FUROSEMIDE INJ 20 MG/2 ML VIAL ONE (07:32)
[2017-06-05] MEDS: POTASSIUM CHLORIDE ELIXIR 20 MEQ/15 ML UD NG SCH (07:53)
[2017-06-05] MEDS: CLOPIDOGREL 75 MG TAB NG SCH (09:13)
[2017-06-05] MEDS: ASPIRIN TABLET 325 MG TAB NG SCH (09:13)
[2017-06-05] MEDS: ENOXAPARIN SODIUM 40 MG/0.4 ML SYG SUBCU SCH (09:14)
[2017-06-05] MEDS: FUROSEMIDE INJ 20 MG/2 ML VIAL IV SCH (09:14)
[2017-06-05] MEDS: KCL 20 MEQ/NS 1,000 ML IVS PRN (09:44)
[2017-06-05] MEDS: SODIUM CHLORIDE 0.9% (FLUSH) 10 ML SYG IV SCH ×2 (10:26→20:31)
[2017-06-05] MEDS ORDERED: PIPERACILLIN/TAZOBACTAM 3.375 GM VIAL IVPB ONE ×4 (11:47→19:58)
[2017-06-05] MEDS ORDERED: SODIUM CHLORIDE 0.9% 100ML 100 ML IVPB ONE ×4 (11:47→19:58)
--- NOTE | 2017-06-05 19:52 | PN ---
DATE: 06/05/17 SUBJECTIVE: The patient is sitting up in the bed looking around and actually trying and being successful in talking and communicating which has completed improved compared to yesterday. He is still continuing on the treatment for the left lower lobe pneumonia. He did take some ice and some water and did have choking, so he still has significant dysphagia from his previous strokes. He is tolerating his tube feedings quite well. The mother is feeling that he may be a little constipated so will try some Milk of Magnesia if no bowel movement by in the morning. OBJECTIVE: Evaluation of the oropharynx reveals some dry dark concretions on the soft palate. These will require lubrication as well as a swab with ice water applications to assist with his oral hygiene. This is started at this time. LUNGS: Show some clearing of some of the rhonchi especially in the left base compared to yesterday. HEART: Tones regular. ASSESSMENT: 1. Acute left lower lobe pneumonia, health facility acquired, requiring specialized observation and treatment especially because of associated aspiration etiology potential. Started on Zosyn pending culture results. 2. Chronic history of aspiration secondary to significant dysphagia after cerebrovascular accidents two months ago. 3. Gastric tube feeding through a percutaneous endoscopic gastrostomy tube because of the patient's significant tendency to aspirate. 4. Congestive heart failure with pulmonary congestion on chest x-ray of undetermined etiology and followup suggested. 5. Hypothyroidism on supplementation. 6. History of thyroid cancer requiring surgical intervention thyroid and radiation treatments, now "cancer free" according to the mother. 7. History of cerebrovascular accident on two occasions two months ago, treated [facility]. 8. Significant carotid stenosis, nonoperable, no doubt contributing to some cerebral ischemia. 9. Chronic obstructive pulmonary disease. 10. Chronic tobacco abuse with three or more packs of cigarettes having been recently consumed 11. History of hypertension. PLAN: The patient will continue with the current treatment plan awaiting results of blood cultures in the morning. Continue with gastric PEG feedings with close observation for constipation which is usually not a problem, but the mother is thinking that it may become. Will try Milk of Magnesia in the morning if no bowel movement by then. Continue supportive care with special attention to oral hygiene because of very dry mucous membranes and soft palate. Reevaluate in the morning and consider continued care at [facility] when stable. Check with them to see if they can continue IV therapy if required with repeat chest x-ray and lab in the morning. #[id number] MTDD
[2017-06-05] MEDS: MELATONIN 3 MG TAB NG SCH (20:30)
[2017-06-06] MEDS: PIPERACILLIN/TAZOBACTAM 3.375 GM in SODIUM CHLORIDE 0.9% 100ML 100 ML IVPB SCH ×4 (00:02→17:56)
[2017-06-06] MEDS: INSULIN LISPRO 100 UNITS/ML PEN SUBCU SCH ×4 (00:12→18:29)
[2017-06-06] MEDS: IPRATROPIUM/ALBUTEROL 3 ML VIAL INH SCH ×5 (00:24→22:18)
[2017-06-06] MEDS: LEVOTHYROXINE SODIUM 0.025 MG TAB NG SCH (06:06)
[2017-06-06] MEDS: PANTOPRAZOLE SODIUM IV 40 MG VIAL IV SCH (06:06)
[2017-06-06] MEDS: LEVOTHYROXINE SODIUM 0.1 MG TAB NG SCH (06:06)
[2017-06-06] MEDS: NON-FORMULARY MEDICATION 1 EA MIS NG SCH ×5 (06:30→21:01)
--- NOTE | 2017-06-06 07:33 | RAD ---
Portable chest INDICATION: Left lower lobe pneumonia COMPARISON: June 04 IMPRESSION: Prior median sternotomy and ACDF. Dual-lead pacemaker/AICD. Normal heart size. Improving marrow mild infiltrate medial left base. Mild vascular congestion. No large effusion or pneumothorax. Otherwise stable chest Electronically signed by: Bryon Bloom MD 06/06/2017 7:32 AM SECRETARY SPECIALIST
[2017-06-06] MEDS ORDERED: MAGNESIUM HYDROXIDE 30 ML UD PO ONE (08:00)
[2017-06-06] MEDS: POTASSIUM CHLORIDE ELIXIR 20 MEQ/15 ML UD NG SCH (08:23)
[2017-06-06] MEDS: CLOPIDOGREL 75 MG TAB NG SCH (08:24)
[2017-06-06] MEDS: ASPIRIN TABLET 325 MG TAB NG SCH (08:24)
[2017-06-06] MEDS: SODIUM CHLORIDE 0.9% (FLUSH) 10 ML SYG IV SCH ×2 (08:24→21:01)
[2017-06-06] MEDS: FUROSEMIDE INJ 20 MG/2 ML VIAL IV SCH (08:24)
[2017-06-06] MEDS: ENOXAPARIN SODIUM 40 MG/0.4 ML SYG SUBCU SCH (08:24)
[2017-06-06] MEDS ORDERED: PIPERACILLIN/TAZOBACTAM 3.375 GM VIAL IVPB ONE ×2 (11:22→14:21)
[2017-06-06] MEDS ORDERED: SODIUM CHLORIDE 0.9% 100ML 100 ML IVPB ONE ×2 (11:23→14:21)
--- NOTE | 2017-06-06 19:46 | PCM.CORE ---
Physician DVT/VTE - Nurse DVT Assessment & Total Each Risk Factor Represents 5 Points: Stroke < 1 month Each Risk Factor Represents 3 Points: Medical PT with Hx of RI, CHF, Severe infection/sepsis Each Risk Factor Represents 2 Points: Age 60-74 Each Risk Factor Represents 1 Point: Medical PT at Bed Rest, Hx of smoking past year Each Risk Factor is 1 Point: Serious Lung disease (pnemonia <1month, COPD, emphysema,etc) DVT Assessment Score: 13 - 5 or more Very High Risk Treatments: Early Ambulation *, Sequential Compression Device Pharmacological: Enoxaparin 40mg SQ Daily
[2017-06-06] MEDS: MELATONIN 3 MG TAB NG SCH (21:01)
[2017-06-07] MEDS: IPRATROPIUM/ALBUTEROL 3 ML VIAL INH SCH ×5 (00:05→11:51)
[2017-06-07] MEDS: INSULIN LISPRO 100 UNITS/ML PEN SUBCU SCH ×3 (00:34→13:24)
[2017-06-07] MEDS ORDERED: SODIUM CHLORIDE 0.9% 100ML 100 ML IVPB ONE ×3 (00:35→12:48)
[2017-06-07] MEDS ORDERED: PIPERACILLIN/TAZOBACTAM 3.375 GM VIAL IVPB ONE ×3 (00:35→12:48)
[2017-06-07] MEDS: PIPERACILLIN/TAZOBACTAM 3.375 GM in SODIUM CHLORIDE 0.9% 100ML 100 ML IVPB SCH ×3 (00:42→13:29)
[2017-06-07] MEDS: LEVOTHYROXINE SODIUM 0.025 MG TAB NG SCH (06:14)
[2017-06-07] MEDS: PANTOPRAZOLE SODIUM IV 40 MG VIAL IV SCH (06:14)
[2017-06-07] MEDS: NON-FORMULARY MEDICATION 1 EA MIS NG SCH ×3 (06:14→14:56)
[2017-06-07] MEDS: LEVOTHYROXINE SODIUM 0.1 MG TAB NG SCH (06:14)
[2017-06-07 07:06] VITALS: TEMP 97.5
[2017-06-07] MEDS: IV SET AND CAP CHANGE INJ INJ SCH (07:19)
--- NOTE | 2017-06-07 08:09 | RAD ---
EXAM DESCRIPTION: Chest,1 View CLINICAL HISTORY: 62 years Male, pneumonia COMPARISON: June 06, 2017 TECHNIQUE: AP portable chest. FINDINGS: Lung volumes remain small with previous sternotomy and indwelling defibrillator noted. The right lung is essentially clear with crowded basilar markings. Coarse markings in the medial retrocardiac region of the left lung base persist consistent with patchy dense lobar or segmental consolidation is not apparent. I am overload or overt failure is not apparent Bronchopneumonia. IMPRESSION: Small lung volumes with coarse basilar markings with suspected minimal atelectasis or patchy infiltrate in the medial left lung base. This is little changed from previous day's study. Electronically signed by: Jay Alvarez MD 06/07/2017 8:08 AM HOTEL ROOM ATTENDANT
[2017-06-07] MEDS: POTASSIUM CHLORIDE ELIXIR 20 MEQ/15 ML UD NG SCH (08:28)
--- NOTE | 2017-06-07 08:30 | PN ---
SUPERVISING PHYSICIAN: Cirilo Sanz MD DATE: 06/06/17 SUBJECTIVE: The patient is in bed, resting, interacting with family members. His is present and noted that his mental status is near his baseline status prior to admission. He is still unable to clear his airway significantly and has not yet produced a sputum. He has not yet had a bowel movement. He does remain afebrile and his x-rays are stable. OBJECTIVE: VITAL SIGNS: T-max 98.4. Pulse 92. Blood pressure 121/83. Respirations 21. Saturation 95% on nasal cannula at 4 liters. I&Os are not well measured due to the fact that he is incontinent. Weight 57.4 kg. CHEST: Continued rhonchi on the left compared to the right, but he still continues to have large amount of upper airway secretions which make it very difficult to fully assess due to the gurgling and the patient having difficulty at times clearing his airway. HEART: Regular rate and rhythm. ABDOMEN: Soft. G-tube remains in place with no signs of complications. Bowel sounds are present. EXTREMITIES: No cyanosis, clubbing or edema. NEUROLOGIC: He does interact and makes incomprehensible noises when trying to speak, but his notes that is his baseline status prior to becoming ill. He does move his extremities ad jorge. LABORATORY: White count 6,900 with a normalized differential. Hemoglobin 9, hematocrit 30.1, platelet count 182,000. Electrolytes show a low potassium of 3.3 with BUN 15, creatinine 0.51, calcium 8.6. MICROBIOLOGY: Urine culture showed no growth at 48 hours. Blood cultures remain negative at 48 hours. RADIOLOGY: Repeat single view chest x-ray per radiologic interpretation showed a normal heart size, improving mild infiltrate in the medial left base with some mild vascular congestion. No large effusions or pneumothorax. Otherwise, stable chest. ASSESSMENT: 1. Acute left lower lobe pneumonia, health facility acquired, with concern for aspiration etiology with the patient being on parenteral antibiotic to include Zosyn and showing good clinical response. 2. Chronic history of aspiration secondary to significant dysphagia after cerebrovascular accidents two months ago. 3. Gastric tube feeding through a percutaneous endoscopic gastrostomy tube with the patient having a significant tendency to aspirate. 4. Congestive heart failure with pulmonary congestion on chest x-ray, stable. 5. Hypothyroidism on supplementation. 6. History of thyroid cancer requiring surgical intervention thyroid and radiation treatments, now "cancer free" according to the mother. 7. History of chronic obstructive pulmonary disease. 8. Chronic tobacco abuse with three or more packs of cigarettes per day. 9. History of hypertension. PLAN: The patient continues to show good clinical response. Therefore, we will continue with monotherapy with Zosyn and monitor his kidney function closely. We will recheck his labs in the morning as well as x-ray. If he continues to show good clinical improvement and stabilization and no longer requiring more aggressive pulmonary hygiene, we will consider discharging back to [facility] to continue with oral therapy at discharge, more likely discharge on Augmentin 875 mg twice daily for 10 days full treatment plan. We will try some Milk of Magnesia tomorrow if he continues to not have a bowel movement. Until discharge, we will continue to monitor the patient closely and treat appropriately. #[id number] [facility]
[2017-06-07] MEDS ORDERED: POTASSIUM CHLORIDE ELIXIR 20 MEQ/15 ML UD PO ONE (08:44)
[2017-06-07] MEDS: ASPIRIN TABLET 325 MG TAB NG SCH (09:38)
[2017-06-07] MEDS: CLOPIDOGREL 75 MG TAB NG SCH (09:39)
[2017-06-07] MEDS: FUROSEMIDE INJ 20 MG/2 ML VIAL IV SCH (09:40)
[2017-06-07] MEDS: ENOXAPARIN SODIUM 40 MG/0.4 ML SYG SUBCU SCH (09:40)
[2017-06-07] MEDS: SODIUM CHLORIDE 0.9% (FLUSH) 10 ML SYG IV SCH (09:40)
[2017-06-07 14:20] VITALS: BP 124/82; O2SAT 89
--- NOTE | 2017-06-08 09:33 | DS ---
SUPERVISING PHYSICIAN: Cirilo Sanz MD DISCHARGE DIAGNOSIS: 1. Acute left lower lobe pneumonia, health facility acquired, initially with concern for aspiration etiology with the patient being on parenteral antibiotic to include Zosyn and showing good clinical response prior to discharge. 2. Chronic history of aspiration secondary to significant dysphagia after cerebrovascular accidents two months ago. 3. Gastric tube feeding through a percutaneous endoscopic gastrostomy tube with the patient having a significant tendency to aspirate. 4. Congestive heart failure with pulmonary congestion on chest x-ray, stable. 5. Hypothyroidism on supplementation. 6. History of thyroid cancer requiring surgical intervention thyroid and radiation treatments, now "cancer free" according to the family. 7. History of chronic obstructive pulmonary disease with some exacerbation secondary to using pneumonia as noted in #1. 8. Chronic tobacco abuse with three or more packs of cigarettes per day, currently not smoking. 9. History of hypertension. REASON FOR HOSPITALIZATION: Mr. Martinez is a 62-year-old, male patient who is a resident of [facility] who was admitted to the hospital via the Emergency Room on 06/04/17 because of worsening shortness of breath especially worsening over the last day before admission. He was seen earlier the morning prior to admission in the Emergency Room and was found to have a low degree of congestive heart failure, pulmonary congestion on chest x-ray and some aspiration symptoms and was started on clindamycin which was never started because the medicine was not made available. It was 10 hours later that he came back to the Emergency Room because of episodes of worsening shortness of breath. He becomes quite anxious and ended up coughing and even some of his coloration changed. Aspiration is a significant problem since he has had two strokes which occurred beginning the middle of March. He had two weeks at [facility] for the strokes. It was there that they found he had almost complete obstruction of one of his carotid arteries which was unapproachable. He had had worsening aspiration with dysphagia and difficulty swallowing and was unable to fully talk and tended to choke easily. He was given a gastric feeding tube and was sent to halfway at [facility]. Since that time, he has gained 4 pounds and has been able to get up and around in a wheelchair with weakness on the left side of his body showing some slight improvement, especially in the leg. His talking and his ability to swallow, though, have persisted in being significantly disabled. On 06/04/17, he was admitted to the hospital because of the development of a left middle and left lower lobe pneumonia on chest x- ray. He was initiated on parenteral antibiotics including special attention to nutritional needs in efforts to further prevent aspiration. He was admitted in stable condition. LABORATORY: White count on admission was 4,300 with hemoglobin 10.3, hemoglobin 32.2. Hemoglobin and hematocrit remained stable and at discharge were 10.5 and 31.6 with white count 5,100. Differential did show an initial left shift which resolved after initiation of treatment. Coagulation studies showed just a slightly elevated PT of 15.3 with PT-T 35.0. Blood gases in the Emergency Room showed pH 7.48, PCO2 33, PO2 57, bicarb 24, saturation 94% on nasal cannula. Chemistries on admission showed normal electrolytes with BUN 21 , created 0.6. He did have an elevated BNP of 318, but troponins were normal at 0.02. Liver functions were within normal limits with magnesium being low at 1.6. After initiation of treatment including treatment in acute setting, his discharge electrolytes showed he was mildly hypokalemia with 3.0 potassium and was given additional potassium replacement prior to discharge. BUN 15, creatinine 0.48, glucoses stable, calcium 8.8 at discharge. Urinalysis on admission was within normal limits. MICROBIOLOGY: Urine culture showed no growth at 48 hours. Blood culture remained negative at 3 days. He was never able to produce a sputum for culture. RADIOLOGY: Chest x-ray initially in the Emergency Department prior to admission per radiologic interpretation of single view chest showed mild pulmonary vascular congestion. Several x-rays were repeated and final x-ray on the morning of discharge per radiologic interpretation of single view chest showed small lung volumes with coarse basilar markings with suspected atelectasis or patchy infiltrate in the left lung base, little change from previous study, showing to be stable. He had an EKG in the Emergency Room prior to admission which showed a sinus tachycardia at [address] or T -wave changes. HOSPITAL COURSE: Mr. Martinez was admitted as noted on 06/04/17 for concerns for left sided aspiration pneumonia. He was initiated on antibiotics to include Zosyn. He did progress clinically well and was found to be stable. He had good pulmonary hygiene, but was never able to fully produce any sputum for cultures, but continued to show clinical improvement. It was decided he needed to have the head of the bed at 45 degrees during tube feedings and residual should be checked. He had a few residuals greater than 60, but for the most part was tolerating his tube feedings without any evidence of further aspiration. It was felt on the morning of discharge that the patient had clinically improved and would be continued in the outpatient setting with continued antibiotic therapy. PLAN: Mr. Martinez was discharged on 06/07/17 back to [facility] via the van. He was to have close clinical followup in the following week with his primary care provider, Dr. Nolan. He had instructions with nursing staff for tube feedings as directed prior to hospitalization. They are to keep his head at least above 45 degrees while giving tube feedings and for at least 45 minutes after completion of those tube feedings. They are to check residuals prior to giving nutrition and any residual greater than 65 cc they are to hold until next time for administration. He is to return to the hospital for any worsening or concerning symptoms. MEDICATIONS AT DISCHARGE: 1. Albuterol 2.5 mg nebulizers as needed. 2. Augmentin 875 mg twice daily, #20 via G-tube. 3. DuoNeb treatments 3 mL inhaled q.4h. as scheduled. All other medications as per previous to hospitalization. DIET AT DISCHARGE: Resume usual diet. ACTIVITY: As per physical therapy and increase as tolerated. CONDITION AT DISCHARGE: Stable and improved. #[id number] [facility]
== END 2017-06-07 16:00 | DRG 190 ==
LOC: ER 22:58 → MS 06-04 01:00 → OBSVTOIN 06-04 01:00
PROVIDERS: ADMIT Emergency Medicine; ATTEND Nurse Practitioner Family
DX: J44.0 Chronic obstructive pulmonary disease with (acute) lower respiratory infection (principal); J18.9 Pneumonia, unspecified organism; I69.354 Hemiplegia and hemiparesis following cerebral infarction affecting left non-dominant side; I69.391 Dysphagia following cerebral infarction; J44.1 Chronic obstructive pulmonary disease with (acute) exacerbation; K59.00 Constipation, unspecified; Z66 Do not resuscitate; R13.10 Dysphagia, unspecified; I11.0 Hypertensive heart disease with heart failure; I50.9 Heart failure, unspecified; E89.0 Postprocedural hypothyroidism; F41.9 Anxiety disorder, unspecified; I65.29 Occlusion and stenosis of unspecified carotid artery; Y95 Nosocomial condition; Z95.5 Presence of coronary angioplasty implant and graft; Z93.1 Gastrostomy status; Z85.850 Personal history of malignant neoplasm of thyroid; Z92.3 Personal history of irradiation; Z87.891 Personal history of nicotine dependence; Z79.899 Other long term (current) drug therapy

== ENCOUNTER 2017-07-15 12:38 | Emergency (ER) | payer MEDICARE ==
--- NOTE | 2017-07-15 13:04 | ED.PDOC ---
History of Present Illness - General Chief Complaint: Respiratory Problem Time Seen by Provider: 07/15/17 12:59 Source: RN notes reviewed, Vital Signs reviewed, EMS notes reviewed, family Exam Limitations: clinical condition Additional Information: 62 YEAR OLD WHITE MALE BROUGHT FROM LOCAL [place] FOR EVALUATION OF SHORTNESS OF BREATH HYPOXIA O2 SAT IN THE 70S HE HAS MULTIPLE MEDICAL PROBLEMS 1 COPD 2 THYROID CANCER SP DXT 3 LEFT HEMIPARESIS 3 MONTHS AGO ( HE IS RECOVERING FROM THE WEAKNESS ) 4 SP CABAG [place] ATTEMPTED TO WALK WITHOUT ASSISTANCE AND HIT THE BACK OF THE HEAD NOW HE IS NOTED TO HAVE RIGHT SIDED WEAKNESS HE CANT NOT SPEAK SECONDARY TO THE CVA AND RADIATION THERAPY HE HAD RECEIVED IN THE PAST - History of Present Illness Timing/Duration: unsure Severity: moderate Improving Factors: nothing Worsening Factors: nothing Associated Symptoms: cough, shortness of breath, weakness Allergies/Adverse Reactions: Allergies NO KNOWN ALLERGY Allergy (Verified 07/15/17 13:40) Home Medications: Ambulatory Orders Clopidogrel Bisulfate [Plavix] 75 mg PEG DAILY 04/11/17 Cyanocobalamin [Vitamin B12] 500 mcg PEG DAILY 04/11/17 Levothyroxine Sodium 125 mcg PEG ACBK 04/11/17 PARoxetine HCL [Paxil] 20 mg PEG DAILY 04/11/17 Acetaminophen [Tylenol] 650 mg PEG PRN 06/04/17 Aspirin 325 mg PEG DAILY 06/04/17 Atorvastatin Calcium [Lipitor] 80 mg PEG BEDTIME 06/04/17 Cetirizine HCl 10 mg PEG DAILY 06/04/17 Guaifenesin 400 mg PEG BID 06/04/17 Melatonin 3 mg PEG BEDTIME 06/04/17 Multiple Vitamin [Multivitamins] 1 cap PEG DAILY 06/04/17 Nutritional Supplements [Jevity 1.5 Homero/Fiber] 1 liq PEG 5XD 06/04/17 Ranitidine HCl 150 mg PEG BID 06/04/17 Thiamine HCl 100 mg PEG DAILY 06/04/17 Albuterol Sulfate Nebs [Proventil Nebs] 2.5 mg NEB PRN PRN vial 06/07/17 Amoxicillin & Pot Clavulanate [Augmentin Tab] 875 mg PO BID #20 tab 06/07/17 Ipratropium/Albuterol [Duoneb] 3 ml INH RTQ4 vial 06/07/17 Review of Systems - Review of Systems Constitutional: States: see HPI EENTM: States: no symptoms reported Respiratory: States: no symptoms reported Gastrointestinal/Abdominal: States: no symptoms reported Genitourinary: States: no symptoms reported Musculoskeletal: States: no symptoms reported Skin: States: no symptoms reported Neurological: States: see HPI Endocrine: States: no symptoms reported Hematologic/Lymphatic: States: no symptoms reported Past Medical History (General) - Patient Medical History Hx Seizures: No Hx Stroke: Yes - x2 Hx Dementia: No Hx Asthma: No Hx of COPD: Yes Hx Cardiac Disorders: Yes - Cardiac stents, PVD Hx Congestive Heart Failure: Yes Hx Pacemaker: No Hx Hypertension: No Hx Thyroid Disease: Yes Hx Diabetes: No Hx Gastroesophageal Reflux: Yes Hx Renal Disease: No Hx Cancer: Yes - thyroid, throat Hx of HIV: No Hx MRSA: No - Vaccination History Hx Influenza Vaccination: Yes - 2016 Hx Pneumococcal Vaccination: Yes - Social History Hx Tobacco Use: Yes Hx Alcohol Use: No Hx Substance Use: No Hx Depression: No Hx Physical Abuse: No Hx Emotional Abuse: No Family Medical History - Family History Father Family History: Unknown Living Status: Hx Cardiac Disease: Yes - mom Physical Exam - Physical Exam General Appearance: Obvious distress Eye Exam: bilateral normal Ears, Nose, Throat: hearing grossly normal, normal ENT inspection, normal pharynx, abnormal TM (R) Neck: non-tender, full range of motion, supple Respiratory: chest non-tender, respiratory distress, decreased breath sounds, accessory muscle use, crackles, rales, rhonchi Cardiovascular/Chest: normal peripheral pulses, no edema, no gallop, no JVD, no murmur, tachycardia Peripheral Pulses: radial,right: 2+, radial,left: 2+, femoral,right: 2+, femoral ,left: 2+ Gastrointestinal/Abdominal: normal bowel sounds, non tender, soft, no organomegaly, no pulsatile mass Back Exam: normal inspection Neurologic: alert - left arm is flaccid Skin Exam: normal color, warm/dry Lymphatic: no adenopathy Departure - Departure Clinical Impression: Subdural hematoma Disposition: Discharge to Home or Self Care Departure Forms: ED Discharge - Pt. Copy, Patient Portal Self Enrollment Referrals: Jay Mckenzie MD [Primary Care Provider] - 1-2 Weeks Home Medications: Ambulatory Orders Clopidogrel Bisulfate [Plavix] 75 mg PEG DAILY 04/11/17 Cyanocobalamin [Vitamin B12] 500 mcg PEG DAILY 04/11/17 Levothyroxine Sodium 125 mcg PEG ACBK 04/11/17 PARoxetine HCL [Paxil] 20 mg PEG DAILY 04/11/17 Acetaminophen [Tylenol] 650 mg PEG PRN 06/04/17 Aspirin 325 mg PEG DAILY 06/04/17 Atorvastatin Calcium [Lipitor] 80 mg PEG BEDTIME 06/04/17 Cetirizine HCl 10 mg PEG DAILY 06/04/17 Guaifenesin 400 mg PEG BID 06/04/17 Melatonin 3 mg PEG BEDTIME 06/04/17 Multiple Vitamin [Multivitamins] 1 cap PEG DAILY 06/04/17 Nutritional Supplements [Jevity 1.5 Homero/Fiber] 1 liq PEG 5XD 06/04/17 Ranitidine HCl 150 mg PEG BID 06/04/17 Thiamine HCl 100 mg PEG DAILY 06/04/17 Albuterol Sulfate Nebs [Proventil Nebs] 2.5 mg NEB PRN PRN vial 06/07/17 Amoxicillin & Pot Clavulanate [Augmentin Tab] 875 mg PO BID #20 tab 06/07/17 Ipratropium/Albuterol [Duoneb] 3 ml INH RTQ4 vial 06/07/17 Transfer to Outside Facility - Transfer Information Accepting Provider:: DR TADEO Accepting Facility: [facility] Reason for Transfer: required specialist not available - LEFT HEMISPERIC SUB DURAL HEMATOMA WITH RIGHT SIDED WEAKNESS
--- NOTE | 2017-07-15 13:57 | RAD ---
Procedure: XR CHEST 1 VIEW Exam Date: 07/15/2017 1:18 PM TESTER SOUND Ordering Provider: Jono Sarkar Clinical Indication: CVA Comparison: June 07, 2017 Findings: Stable left-sided dual-lead defibrillator. Bilateral perihilar interstitial septal prominence is present with somewhat streaky appearing left basilar opacities. No pleural effusion or pneumothorax. Heart size is normal. Postoperative changes of CABG surgery are present. Impression: No acute pulmonary process. Procedure: CT HEAD WITHOUT IV CONTRAST Exam Date: 07/15/2017 1:18 PM TESTER SOUND Ordering Provider: Jono Sarkar Clinical Indication: CVA Comparison: None Technique: CT images of the head were obtained without contrast administration. Coronal and sagittal reformats were obtained. This exam was performed according to our departmental dose-optimization program which includes automated exposure control, adjustment of the mA and/or kV according to patient size and/or use of iterative reconstruction technique. Findings: There is a large subdural hematoma overlying the left temporal and frontal parietal lobe convexities . This hematoma measures 11 mm in maximal thickness. There is also a large left parafalcine subdural hematoma. There is localized mass effect resulting in slight effacement of the left frontal and parietal lobe sulci. Remote infarction involves the right superior parietal lobule. Subcentimeter remote lacunar infarction involves the genu of the right internal capsule. Patchy and confluent areas of diminished attenuation are seen involving the subcortical and periventricular white matter, presumable related to small vessel occlusive disease. Global parenchymal volume loss is present. Impression: Evidence of a left panhemispheric subdural hematoma with localized mass effect but no significant midline shift or hydrocephalus. Senescent changes. Remote right internal capsule and right parietal lobe infarcts. ::: These findings were verbally reported by Lindsey Joe MD to Jono Sarkar on 07/15/2017 1:51 PM TESTER SOUND. ::: Electronically signed by: Lindsey Joe MD 07/15/2017 1:56 PM TESTER SOUND
[2017-07-15 15:21] VITALS: BP 109/75; TEMP 100.6; O2SAT 92
--- NOTE | 2017-07-15 15:36 | CT ---
Procedure: CT CERVICAL SPINE WITHOUT IV CONTRAST Exam Date: 07/15/2017 2:17 PM JAVA LEAD DEVELOPER Ordering Provider: Jono Sarkar Clinical Indication: fall Comparison: None Technique: CT images of the cervical spine were obtained without intravenous contrast administration. Coronal and sagittal reformations were provided for further characterization. This exam was performed according to our departmental dose-optimization program which includes automated exposure control, adjustment of the mA and/or kV according to patient size and/or use of iterative reconstruction technique. Findings: Vertebral body heights are maintained. There is mild rightward listing of the cervical spine. There is evidence of C5-C7 ACDF. No hardware/graft competition is present. The dens is intact. No evidence of fracture. No prevertebral soft tissue edema. Multilevel, multifactorial spondylosis is present with disc protrusions and disc osteophyte complexes at multiple levels. This is most notable at C4-C5 level where there is moderate spinal canal stenosis. Visualized lung apices demonstrate multifocal ill-defined patchy opacities. Left-sided dual-lead pacemaker or defibrillator is present. Impression: No CT evidence for acute cervical osseous injury. Intact C5-C7 ACDF. Partially imaged multifocal patchy opacities in the bilateral upper lobes suspicious for an atypical infectious process. Electronically signed by: Lindsey Joe MD 07/15/2017 3:35 PM JAVA LEAD DEVELOPER
== END 2017-07-15 15:10 | disposition short-term general hospital (02) ==
LOC: ER 12:38
DX: S06.5X9A Traumatic subdural hemorrhage with loss of consciousness of unspecified duration, initial encounter (principal); J44.9 Chronic obstructive pulmonary disease, unspecified; I69.928 Other speech and language deficits following unspecified cerebrovascular disease; I69.954 Hemiplegia and hemiparesis following unspecified cerebrovascular disease affecting left non-dominant side; C73 Malignant neoplasm of thyroid gland; I50.9 Heart failure, unspecified; Z95.1 Presence of aortocoronary bypass graft; Z79.02 Long term (current) use of antithrombotics/antiplatelets; Z87.891 Personal history of nicotine dependence; W19.XXXA Unspecified fall, initial encounter; Y92.129 Unspecified place in nursing home as the place of occurrence of the external cause
CPT/HCPCS: 36415; 70450; 71045; 72125; 80053; 85025; 85610; 85730; L0120